=== PATIENT | female | born 1980 | race American Indian/Alaskan Native ===

== ENCOUNTER 2016-10-19 21:13 | Emergency (ER) | payer MEDICAID ==
--- NOTE | 2016-10-19 22:12 | Emergency Department Report ---
Chief Complaint: Abdominal Pain Stated Complaint: RT SIDE/BACK PAIN Time Seen by Provider: 10/19/16 22:06 - HPI History of Present Illness: Patient is a 36-year-old female who presents to ED complaining of right sided flank pain radiating to her back 2 days. Patient states today the pain got worse and is radiating down her back. Patient describes pain as throbbing in nature, intermittent, 5 out of 10 intensity. Patient states last menstrual period as last week. Patient also states she took 800mg Motrin earlier today with no relief. Patient denies fevers/chills/nausea/vomiting/recent fall or trauma/dysuria/ vaginal discharge or bleeding. - ROS Review of Systems: As noted in HPI - Exam Vital Signs: Vital Signs 10/19/16 21:19 Temperature 98.5 F Pulse Rate 97 H Respiratory 18 Rate Blood Pressure 115/70 O2 Sat by Pulse 100 Oximetry Physical Exam: GENERAL: Alert and oriented x3, no apparent distress, Normal Gait, atraumatic. LUNGS: Symetrical with respiration, No wheezing, no rales or crackles, CTAB. HEART: S1, S2 present, regular rate and rhythm without murmur, no rubs, no gallops. ABDOMEN: No organomegaly was noted,Positive bowel sounds, soft, and non- distended. . Nontender to palpation on all Quadrants, NO CVA tenderness. Mild tenderness to palpation of right side lower back SKIN: Warm and dry, No lesions, No ulceration or induration present. MSE screening note: Focused history and physical exam performed. Due to findings the following was ordered: ED Medical Decision Making - Medical Decision Making Labprotocolordered if labs come back normal patient can be sent over by check fast track provider. Otherwise patient to be seen on the main side by ED physician. ED Disposition for MSE Condition: Stable Instructions: Abdominal Pain (ED)
[2016-10-19 23:04] LABS: Basophils % (Auto) 0.7 % (0.0-1.8); Eosinophils % (Auto) 1.6 % (0.0-4.3); Hematocrit 32.6 % (30.3-42.9); Hemoglobin 10.8 gm/dl (10.1-14.3); Mean Corpuscular HGB Conc 33 % (30-34); Mean Corpuscular Hemoglobin 26 pg (28-32); Mean Corpuscular Volume 79 fl (79-97); Platelet Count 310 K/mm3 (140-440); Red Blood Count 4.14 M/mm3 (3.65-5.03); Red Cell Distribution Width 16.6 % (13.2-15.2); White Blood Count 8.8 K/mm3 (4.5-11.0)
[2016-10-19 23:21] LABS: Alanine Aminotransferase 21 units/L (7-56); Albumin 3.8 g/dL (3.9-5); Albumin/Globulin Ratio 1.1 %; Alkaline Phosphatase 77 units/L (35-129); Anion Gap 15 mmol/L; Bilirubin,Total 0.3 mg/dL (0.1-1.2); Blood Urea Nitrogen 14 mg/dL (7-17); Calcium 9.3 mg/dL (8.4-10.2); Carbon Dioxide 27 mmol/L (22-30); Chloride 101.1 mmol/L (98-107); Glucose 118 mg/dL (65-100); Potassium 3.9 mmol/L (3.6-5.0); Sodium 139 mmol/L (137-145); Total Protein 7.2 g/dL (6.3-8.2)
[2016-10-20 01:34] LABS: Bilirubin,Urine NEG (Negative); Blood,Urine LG (Negative); Ketones,Urine NEG (Negative); Leukocyte Esterase,Urine NEG (Negative); Mucus,Urine FEW /HPF; Nitrite,Urine NEG (Negative); Protein,Urine <15 mg/dL mg/dL (Negative); Urobilinogen,Urine < 2.0 mg/dL (<2.0)
[2016-10-20 03:46] VITALS: BP 114/63
--- NOTE | 2016-10-20 21:42 | ED Elopement Review ---
ED Pt Elopement review - Results review Lab results: Laboratory Tests 10/19/16 10/19/16 10/19/16 22:53 22:53 22:53 WBC 8.8 RBC 4.14 Hgb 10.8 Hct 32.6 MCV 79 MCH 26 L MCHC 33 RDW 16.6 H Plt Count 310 Lymph % (Auto) 31.4 [place] % (Auto) 5.3 Eos % (Auto) 1.6 Baso % (Auto) 0.7 Lymph # 2.8 [place] # 0.5 Eos # 0.1 Baso # 0.1 Seg Neutrophils % 61.0 Seg Neutrophils # 5.4 Sodium 139 Potassium 3.9 Chloride 101.1 Carbon Dioxide 27 Anion Gap 15 BUN 14 Creatinine 0.7 Estimated GFR > 60 BUN/Creatinine Ratio 20.00 Glucose 118 H Calcium 9.3 Total Bilirubin 0.3 AST 17 ALT 21 Alkaline Phosphatase 77 Total Protein 7.2 Albumin 3.8 L Albumin/Globulin Ratio 1.1 HCG, Qual Negative Urine Color Urine Turbidity Urine pH Ur Specific [place] Urine Protein Urine Glucose (UA) Urine Ketones Urine Blood Urine Nitrite Urine Bilirubin Urine Urobilinogen Ur Leukocyte Esterase Urine WBC (Auto) Urine RBC (Auto) U Epithel Cells (Auto) Hyaline Casts Urine Mucus Urine HCG, Qual 10/19/16 Unknown WBC RBC Hgb Hct MCV MCH MCHC RDW Plt Count Lymph % (Auto) [place] % (Auto) Eos % (Auto) Baso % (Auto) Lymph # [place] # Eos # Baso # Seg Neutrophils % Seg Neutrophils # Sodium Potassium Chloride Carbon Dioxide Anion Gap BUN Creatinine Estimated GFR BUN/Creatinine Ratio Glucose Calcium Total Bilirubin AST ALT Alkaline Phosphatase Total Protein Albumin Albumin/Globulin Ratio HCG, Qual Urine Color Yellow Urine Turbidity Clear Urine pH 5.0 Ur Specific [place] 1.020 Urine Protein <15 mg/dl Urine Glucose (UA) Neg Urine Ketones Neg Urine Blood Lg Urine Nitrite Neg Urine Bilirubin Neg Urine Urobilinogen < 2.0 Ur Leukocyte Esterase Neg Urine WBC (Auto) 5.0 Urine RBC (Auto) 162.0 U Epithel Cells (Auto) 1.0 Hyaline Casts 7 Urine Mucus Few Urine HCG, Qual Negative - Call Back decision Pt Call Back Decision: No action required
== END 2016-10-19 23:00 | disposition left against medical advice (07) ==
LOC: ED 21:13
DX: R10.9 Unspecified abdominal pain (principal); Z53.21 Procedure and treatment not carried out due to patient leaving prior to being seen by health care provider
CPT/HCPCS: 36415; 80053; 81001; 81025; 84703; 85025